=== PATIENT | male | born 1950 | race Caucasian/White ===

== ENCOUNTER 2025-04-28 09:55 | Emergency (ER) | payer MEDICARE, SELFPAY ==
[2025-04-28 10:01] VITALS: BP 164/83; PULSE 83; RESP 16; TEMP 36.6; O2SAT 97
[2025-04-28 10:23] LABS: EDUAAPPEAR Cloudy; EDUABILI Negative (Negative); EDUABLOOD 3+ (Negative); EDUACOLOR1 Yellow; EDUAGLUCOSE Negative (Negative); EDUAKETONE Negative (Negative); EDUALEUKO 2+ (Negative); EDUANITRATE Negative (Negative); EDUAPH 7.0; EDUAPROTEIN 3+ (Negative); EDUASPGRAVITY 1.025; EDUAUROBILI 1.0
--- NOTE | 2025-04-28 10:29 | ED.MALEGU ---
HPI - Male Genitourinary General Chief complaint: Urogenital-Male Stated complaint: Uti Symptoms Time Seen by Provider: 04/28/25 10:16 Source: patient and RN notes reviewed Mode of arrival: ambulatory Limitations: no limitations History of Present Illness HPI Narrative: 75-year-old male patient presents today complaining 2-3 day history of urgency and frequency with some difficulty passing urine, and notice some hematuria today. Patient had a UTI 3 weeks ago and was treated with Cipro successfully. Denies any abdominal or back pain, or feelings of fever. History of enlarged prostate. Related Data Home Medications ?Medication ?Instructions ?Recorded ?Confirmed ?Last Taken ?Type atorvastatin 20 mg tablet (Lipitor) 20 mg PO DAILY 04/28/25 04/28/25 Unknown History lisinopril 20 mg tablet 20 mg PO DAILY 04/28/25 04/28/25 Unknown History metformin 1,000 mg tablet 1,000 mg PO BID 04/28/25 04/28/25 Unknown History papaverine 150 mg-phentolamin 5 150 ml intra-cavernosal .biweek 04/28/25 04/28/25 Unknown History mg-alprost 50 mcg intracavernosal soln semaglutide (weight loss) 04/28/25 Unknown History testosterone 1 % (50 mg/5 gram) 1 packet topical DAILY 04/28/25 04/28/25 Unknown History transdermal gel packet Allergies Allergy/AdvReac Type Severity Reaction Status Date / Time No Known Allergies Allergy Verified 04/28/25 10:05 [facility] Past Medical History Medical History (Updated 04/28/25 @ 10:33 by Libra Le, FINANCIAL ADMINISTRATOR, PROJECT SCHEDULER) Hypertension High cholesterol Enlarged prostate Comments At time of signature, I have reviewed and agree with nursing past medical, surgical, social and family history unless otherwise noted. Please see nursing chart for further information. There is no relevant family history pertinent to the presenting complaint Exam Narrative: GENERAL: Well-appearing, well-nourished, and in no acute distress. HEAD: Normocephalic, atraumatic. EYES: EOMI. No redness or drainage. Conjunctivae normal. ENT: Mucous membranes pink and moist. NECK: Normal AROM. CHEST: No respiratory distress. Clear to auscultation. HEART: Regular rate and rhythm. No murmur appreciated. ABDOMEN: Soft, nontender, nondistended, normal active bowel sounds. EXTREMITIES: Normal range of motion. No edema. SKIN: Warm, dry, no rash. Capillary refill normal. Normal skin turgor. NEURO: No focal deficits. Alert and oriented x3. Gait steady. PSYCH: Normal affect. No signs of depression or anxiety. Course Course Level of Care: Express Care Visit Vital Signs Vital signs: Vital Signs Temperature 97.9 F 04/28/25 10:01 Pulse Rate 83 04/28/25 10:01 Respiratory Rate 16 04/28/25 10:01 Blood Pressure 164/83 H 04/28/25 10:01 Pulse Oximetry 97 04/28/25 10:01 Oxygen Delivery Room Air 04/28/25 10:01 Temperature 97.9 F 04/28/25 10:01 Pulse Rate 83 04/28/25 10:01 Respiratory Rate 16 04/28/25 10:01 Blood Pressure 164/83 H 04/28/25 10:01 Pulse Oximetry 97 04/28/25 10:01 Oxygen Delivery Room Air 04/28/25 10:01 Reviewed MDM - Male Genitourinary MDM Narrative Medical decision making narrative: 75-year-old male patient presents today complaining 2-3 day history of urgency and frequency with some difficulty passing urine, and notice some hematuria today. Patient had a UTI 3 weeks ago and was treated with Cipro successfully. Denies any abdominal or back pain, or feelings of fever. History of enlarged prostate. Normal physical exam. Urinalysis shows 3+ blood, 3+ protein, 2+ leukocytes. Patient will be treated with Augmentin for UTI. Culture pending. Patient agrees with plan. Vital signs stable. Anticipatory guidance given. Differential Diagnosis Differential diagnosis: Likely urinary tract infection, prostatitis and other (Pyelonephritis) Lab Data Attestation: I reviewed the patient's lab results. Labs: Lab Results 04/28/25 Range/Units 10:21 POC Urine Color Yellow POC Urine Clarity Cloudy POC Urine pH 7.0 POC Ur Specif [place] 1.025 POC Urine Protein 3+ (Negative) POC Ur Glucose (UA) Negative (Negative) POC Urine Ketones Negative (Negative) POC Urine Blood 3+ (Negative) POC Urine Nitrite Negative (Negative) POC Urine Bilirubin Negative (Negative) POC Urine Urobilinogen 1.0 POC U Leukocyte Esteras 2+ (Negative) Critical Care Time Critical Care Time Critical Care Time: No Discharge Plan Discharge Clinical Impression: Urinary tract infection Qualifiers: Urinary tract infection type: acute cystitis Hematuria presence: with hematuria Qualified Code(s): N30.01 - Acute cystitis with hematuria Patient Disposition: Home Condition: Stable Instructions: Antibiotic Form, Urinary Tract Infection in Men (ED) Additional Instructions: Your urine shows infection today. Take Augmentin as prescribed until gone. Your urine will be sent of for a culture to identify what type of bacteria is causing your infection. If the culture shows that your medication will not get rid of your infection, you will be notified and a new antibiotic will be called in for you. If your symptoms worsen to include fever, sweats, chills, nausea, vomiting, severe abdominal or back pain, please go to the ER for further evaluation. Patient Language: Armenian Prescriptions: New amoxicillin-pot clavulanate 875-125 mg tablet 1 tablet PO Q12H 7 Days Qty: 14 0RF No Action metformin 1,000 mg tablet 1,000 mg PO BID lisinopril 20 mg tablet 20 mg PO DAILY atorvastatin [Lipitor] 20 mg tablet 20 mg PO DAILY testosterone 1 % (50 mg/5 gram) gel in packet 1 packet topical DAILY semaglutide (weight loss) [id number] 150 mg-5 mg- 50 mcg recon soln 150 ml intra-cavernosal .biweek Follow-up/Referrals: Tao,Edgardo Mccurdy MD [Primary Care Provider] Time of Disposition: 10:33
== END 2025-04-28 10:36 | disposition home or self-care (01) ==
PROVIDERS: Emergency Provider Nurse Practitioner; PCP Internal Medicine
DX: N30.01 Acute cystitis with hematuria (principal); I10 Essential (primary) hypertension; E78.00 Pure hypercholesterolemia, unspecified; N40.0 Benign prostatic hyperplasia without lower urinary tract symptoms
CPT/HCPCS: 81003; 87086; 99203; G0463